=== PATIENT | female | born 2000 | race Two or more races ===

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

== ENCOUNTER 2021-02-22 07:54 | Emergency (ER) | payer MEDICAID, OTHER ==
[~2021-02-22] VITALS: Ht 160 cm; Wt 70.0 kg
[~2021-02-22 07:54] MED LIST changes: +DESO1TAB71 PO; +ESCI20TA39 PO; -ONDA4TAB6 PO; -SACC250C PO
[2021-02-22] MEDS ORDERED: LIDOcaine 1% W/epiNEPHrine 1:200,000 10ml vial IJ ONE (08:05)
[2021-02-22] MEDS ORDERED: LIDOcaine 1% w/epiNEPHrine 1:200,000 30ml vial IJ ONE (08:20)
[2021-02-22 09:05] VITALS: BP 111/77
== END 2021-02-22 09:07 | disposition home or self-care (01) ==
LOC: ER 07:54
DX: L05.01 Pilonidal cyst with abscess (principal); Z79.899 Other long term (current) drug therapy
CPT/HCPCS: 10080; 99282; 99283

== ENCOUNTER 2021-02-23 08:29 | Emergency (ER) | payer MEDICAID ==
[~2021-02-23] VITALS: Ht 160 cm; Wt 88.0 kg
[2021-02-23 08:35] VITALS: BP 115/76
== END 2021-02-23 09:20 | disposition home or self-care (01) ==
LOC: ER 08:32
DX: Z48.01 Encounter for change or removal of surgical wound dressing (principal); L05.01 Pilonidal cyst with abscess; F32.9 Major depressive disorder, single episode, unspecified; Z88.8 Allergy status to other drugs, medicaments and biological substances; Z79.899 Other long term (current) drug therapy
CPT/HCPCS: 99281

== ENCOUNTER 2021-08-29 02:55 | Emergency (ER) | payer MEDICAID ==
[~2021-08-29] VITALS: Ht 160 cm; Wt 86.4 kg
[2021-08-29 03:05] VITALS: BP 155/89
== END 2021-08-29 04:53 | disposition home or self-care (01) ==
LOC: ER 02:56
DX: K02.9 Dental caries, unspecified (principal); K08.89 Other specified disorders of teeth and supporting structures; F32.A Depression, unspecified; Z88.8 Allergy status to other drugs, medicaments and biological substances; Z79.899 Other long term (current) drug therapy
CPT/HCPCS: 64400; 99284